=== PATIENT | male | born 1950 | race Caucasian/White ===

== ENCOUNTER 2017-04-29 21:52 | Observation (INO) | payer OTHER ==
[~2017-04-29] VITALS: Ht 172.7 cm; Wt 100.9 kg
[~2017-04-29 21:52] MED LIST: /WARF25TA; /WARF5TA; ACET65TA; ATEN50TA2; NABU500T; PERC5TAB8; PRIN20TA3; SIMV40TA2
[2017-04-29] MEDS ORDERED: VALS320T3 PO (22:18)
[2017-04-29] MEDS ORDERED: AZIT-12 PO (22:18)
[2017-04-29] MEDS ORDERED: CARV12.5 PO (22:18)
[2017-04-29] MEDS ORDERED: FLOM5CAP PO (22:18)
[2017-04-29] MEDS ORDERED: FINA5TAB2 PO (22:18)
[2017-04-29] MEDS ORDERED: NS 500 ML IV ONE (23:00)
[2017-04-29 23:54] LABS: ABG BASE EXCESS 2.2 (-2.0-2.0); ABG HCO3 25.6 MEQ/L (22.0-26.0); ABG PARTIAL PRESSURE CO2 35.2 mmHg (35.0-45.0); ABG PARTIAL PRESSURE O2 70.2 mmHg (75.0-100.0); ABG STANDARD HCO3 26.4 MEQ/L (22.0-26.0); ABG TOTAL CO2 26.6 MEQ/L (23.0-31.0); ABG pH (ARTERIAL) 7.479 UNITS (7.350-7.450)
[2017-04-30 00:07] LABS: BASO % 0.3 % (0.0-1.0); EOS # 0.6 10^3/uL (0.0-0.50); EOS % 5.2 % (0.0-3.0); IMMATURE GRANULOCYTE % 0.6 % (0-0); LYMPH # 0.8 10^3/uL (1.5-4.5); LYMPH % 7.7 % (24.0-44.0); MEAN CORPUSCULAR HEMOGLOBIN 30.7 pg (27.0-33.0); MEAN CORPUSCULAR HGB CONC 33.9 g/dl (32.0-36.5); MEAN CORPUSCULAR VOLUME 90.7 fl (80.0-96.0); MONO # 0.9 10^3/uL (0.0-0.8); MONO % 7.8 % (0.0-5.0); NEUTROPHILS # 8.5 10^3/uL (1.8-7.7); NEUTROPHILS % 78.4 % (36.0-66.0); PLATELET COUNT, AUTOMATED 259 10^3/uL (150-450); RED CELL DISTRIBUTION WIDTH 13.6 % (11.5-14.5); WHITE BLOOD COUNT 10.8 10^3/uL (4.0-10.0)
[2017-04-30 00:31] LABS: ANION GAP 5 MEQ/L (8-16); BLOOD UREA NITROGEN 40 MG/DL (7-18); CALCIUM LEVEL 8.5 MG/DL (8.8-10.2); CARBON DIOXIDE LEVEL 28 MEQ/L (21-32); CHLORIDE LEVEL 99 MEQ/L (98-107); CREATININE FOR GFR 1.23 MG/DL (0.70-1.30); GLOMERULAR FILTRATION RATE > 60.0 (>49); GLUCOSE, FASTING 120 MG/DL (80-110); POTASSIUM SERUM 3.7 MEQ/L (3.5-5.1); SODIUM LEVEL 132 MEQ/L (136-145)
[2017-04-30] MEDS ORDERED: NS 500 ML IV ONE ×2 (01:00→10:30)
[2017-04-30] MEDS ORDERED: ALEV220T26 PO (02:25)
[2017-04-30] MEDS ORDERED: GARL400T5 PO (02:25)
[2017-04-30 04:37] VITALS: BP 116/63
[2017-04-30] MEDS: HEPARIN SOD (PORCINE) 5000 UNITS/ML VIAL SC SCH ×3 (05:16→21:00)
[2017-04-30 07:29] LABS: BASO % 0.4 % (0.0-1.0); EOS # 0.5 10^3/uL (0.0-0.50); EOS % 6.3 % (0.0-3.0); IMMATURE GRANULOCYTE % 0.5 % (0-0); LYMPH # 0.9 10^3/uL (1.5-4.5); LYMPH % 10.7 % (24.0-44.0); MEAN CORPUSCULAR HEMOGLOBIN 30.6 pg (27.0-33.0); MEAN CORPUSCULAR HGB CONC 33.5 g/dl (32.0-36.5); MEAN CORPUSCULAR VOLUME 91.3 fl (80.0-96.0); MONO # 0.8 10^3/uL (0.0-0.8); MONO % 9.2 % (0.0-5.0); NEUTROPHILS # 6.2 10^3/uL (1.8-7.7); NEUTROPHILS % 72.9 % (36.0-66.0); PLATELET COUNT, AUTOMATED 252 10^3/uL (150-450); RED CELL DISTRIBUTION WIDTH 13.6 % (11.5-14.5); WHITE BLOOD COUNT 8.4 10^3/uL (4.0-10.0)
--- NOTE | 2017-04-30 07:51 | REP ---
PA and lateral chest: Comparison is 11/16/2008. There is focal discoid atelectasis in the left costophrenic angle. Lung reyes otherwise clear. Cardiac size is normal. The cristopher, mediastinum, bony thorax are unremarkable. Signed by Pedro Benitez MD 04/30/2017 07:42 A
[2017-04-30 07:53] LABS: ALBUMIN 2.4 GM/DL (3.2-5.2); ALKALINE PHOSPHATASE 52 U/L (45-117); ALT/SGPT 21 U/L (12-78); ANION GAP 9 MEQ/L (8-16); AST/SGOT 9 U/L (15-37); BILIRUBIN,TOTAL 0.4 MG/DL (0.2-1.0); BLOOD UREA NITROGEN 28 MG/DL (7-18); CALCIUM LEVEL 7.9 MG/DL (8.8-10.2); CARBON DIOXIDE LEVEL 26 MEQ/L (21-32); CHLORIDE LEVEL 101 MEQ/L (98-107); CREATININE FOR GFR 0.95 MG/DL (0.70-1.30); GLOMERULAR FILTRATION RATE > 60.0 (>49); GLUCOSE, FASTING 101 MG/DL (80-110); MAGNESIUM LEVEL 2.2 MG/DL (1.8-2.4); POTASSIUM SERUM 3.5 MEQ/L (3.5-5.1); SODIUM LEVEL 136 MEQ/L (136-145); TOTAL PROTEIN 6.4 GM/DL (6.4-8.2)
[2017-04-30 08:00] VITALS: BP 125/68
[2017-04-30 08:41] LABS: BASO % 0.2 % (0.0-1.0); EOS # 0.7 10^3/uL (0.0-0.50); EOS % 7.6 % (0.0-3.0); IMMATURE GRANULOCYTE % 0.4 % (0-0); LYMPH # 0.9 10^3/uL (1.5-4.5); LYMPH % 10.5 % (24.0-44.0); MEAN CORPUSCULAR HEMOGLOBIN 30.6 pg (27.0-33.0); MEAN CORPUSCULAR HGB CONC 33.5 g/dl (32.0-36.5); MEAN CORPUSCULAR VOLUME 91.1 fl (80.0-96.0); MONO # 0.9 10^3/uL (0.0-0.8); MONO % 9.8 % (0.0-5.0); NEUTROPHILS # 6.4 10^3/uL (1.8-7.7); NEUTROPHILS % 71.5 % (36.0-66.0); PLATELET COUNT, AUTOMATED 240 10^3/uL (150-450); RED CELL DISTRIBUTION WIDTH 13.5 % (11.5-14.5)
[2017-04-30] MEDS ORDERED: CARVedilol 12.5 MG TAB PO SCH (09:00)
[2017-04-30] MEDS ORDERED: hydroCHLOROthiazide 25 MG TAB PO SCH (09:00)
[2017-04-30 09:42] LABS: ANION GAP 9 MEQ/L (8-16); BLOOD UREA NITROGEN 27 MG/DL (7-18); CARBON DIOXIDE LEVEL 26 MEQ/L (21-32); CHLORIDE LEVEL 101 MEQ/L (98-107); GLOMERULAR FILTRATION RATE > 60.0 (>49); GLUCOSE, FASTING 105 MG/DL (80-110); POTASSIUM SERUM 3.8 MEQ/L (3.5-5.1); SODIUM LEVEL 136 MEQ/L (136-145)
--- NOTE | 2017-04-30 09:54 | HPEPDOC ---
General Date of Admission Apr 29, 2017 at 21:53 Primary Care Physician: ARIADNA CISNEROS Attending Physician: JANNA BARAHONA MD Chief Complaint The patient is a 67-year-old male admitted with a reason for visit of High Level Of Cardiac Marker. Source: Patient Exam Limitations: No limitations Timing/Duration: 24 hours Severity: Moderate Associated Symptoms: Diaphoresis, Fever, Chills, Headaches History of Present Illness 67-year-old male, history of hypertension, presented to the emergency room for hypotensive. Patient complained that he exam blood pressure has dropped down to 90s over 50 or past few days. He had denies any change chest pain, shortness of breath, palpitation, dyspnea on exertion, fever, chills, cough, recent travel or sick contact. Home Medications Scheduled (Valsartan/Hydrochlorothia 320-25 mg) 1 Tab Tab, 1 TAB PO DAILY, (Reported) Azithromycin (Azithromycin) 250 Mg Tab, 250 MG PO DAILY, (Reported) Carvedilol (Carvedilol) 12.5 Mg Tab, 12.5 MG PO BID, (Reported) Finasteride (Finasteride) 5 Mg Tab, 5 MG PO QHS, (Reported) Garlic (Garlique) 400 Mg Tab, 400 MG PO DAILY, (Reported) Naproxen Sodium (Aleve) 220 Mg Tab, 220 MG PO BID, (Reported) Tamsulosin Hydrochloride (Flomax) 0.4 Mg Cap, 0.4 MG PO QHS, (Reported) Allergies Coded Allergies: No Known Drug Allergy (Verified Allergy, Unknown, 10/28/12) Oxycodone (Verified Adverse Reaction, Unknown, NAUSEA / VOMITING, 10/28/12) Past Medical History Medical History Hypertension, BPH Surgical History Knee replacement 2, right shoulder repair, hernia repair Family History Significant Family History: COPD, Diabetes, Heart disease Social History * Smoker: Denies Alcohol: Denies Drugs: denies Recent Travel/Sick Contacts: Denies: Recent travel, Recent sick contacts Psychosocial History: No pertinent psych hx Review of Symptoms Constitutional: Reports: Lethargy, Denies: Chills, Fever, Night Sweats Eyes: Denies: Pain, Vision change ENT: Denies: Head Aches, Ear Pain, Dysphagia Skin: Denies: Rash, Lesions, Breakdown Pulmonary: Denies: Dyspnea, Cough Cardiovascular: Reports: Lt Headedness, Denies: Chest Pain, Palpitations, Orthopnea, Paroxysmal Noc. Dyspnea Gastrointestinal: Denies: Nausea, Vomiting, Abdominal Pain, Diarrhea Genitourinary: Denies: Dysuria, Frequency, Incontinence, Retention Hematologic: Denies: Bruising, Bleeding Excessively Musculoskeletal: Denies: Neck Pain, Back Pain, Joint Pain, Muscle Pain, Spasms Neurological: Denies: Weakness, Numbness, Change in speech, Confusion Psych: Reports: Mood Normal, Denies: Depression, Memory Issues Physical Examination General Exam: Positive: Alert, Mild Distress Eye Exam: Positive: PERRLA, Conjunctiva & lids normal, EOMI, Negative: Sclera icteric ENT Exam: Positive: Atraumatic, Mucous membr. moist/pink, Pharynx Normal Neck Exam: Positive: Supple, Negative: JVD, thyromegaly Chest Exam: Positive: Clear to auscultation, Normal air movement Heart Exam: Positive: Rate Normal, Regular Rhythm, Normal S1, Normal S2, Negative: Murmurs, Rubs Telemetry: Positive: No significant arrhythmia Abdomen Exam: Positive: Normal bowel sounds, Soft, Negative: Tenderness, Hepatospenomegaly Extremity Exam: Positive: Normal pulses, Negative: Clubbing, Cyanosis, Edema Skin Exam: Positive: Nl turgor and temperature, Negative: Breakdown, Lesion Neuro Exam: Positive: Normal Speech, Cranial Nerves 3-12 NL, Reflexes 2+ Psych Exam: Positive: Mental status NL, Mood NL, Oriented x 3 Vital Signs Vital Signs Date Time Temp Pulse Resp B/P (MAP) Pulse Ox O2 Delivery O2 Flow Rate FiO2 04/30/17 08:00 99.2 86 18 125/68 (87) 97 Room Air Laboratory Data Labs 24H Laboratory Tests 2 04/29/17 23:36: Blood Gas Bicarbonate Standard 26.4H, Arterial Blood pH 7.479H, Arterial Blood Partial Pressure CO2 35.2, Arterial Blood Partial Pressure O2 70.2L, Arterial Blood Total CO2 26.6, Arterial Blood HCO3 25.6, Arterial Blood Base Excess 2.2H , Arterial Blood Oxygen Saturation 94.9L 04/29/17 23:59: Immature Granulocyte % (Auto) 0.6H, White Blood Count 10.8H, Red Blood Count 3.45L, Hemoglobin 10.6L, Hematocrit 31.3L, Mean Corpuscular Volume 90.7, Mean Corpuscular Hemoglobin 30.7, Mean Corpuscular Hemoglobin Concent 33.9, Red Cell Distribution Width 13.6, Platelet Count 259, Neutrophils (%) (Auto) 78.4H, Lymphocytes (%) (Auto) 7.7L, Monocytes (%) (Auto) 7.8H, Eosinophils (%) (Auto) 5.2H, Basophils (%) (Auto) 0.3, Neutrophils # (Auto) 8.5H, Lymphocytes # (Auto) 0.8L, Monocytes # (Auto) 0.9H, Eosinophils # (Auto) 0.6H, Basophils # (Auto) 0.0 , Immature Granulocyte # (Auto) 0.1H, Nucleated Red Blood Cells % (auto) 0.0, Anion Gap 5L, Glomerular Filtration Rate > 60.0, Lactic Acid Level 1.1, Blood Urea Nitrogen 40H, Creatinine 1.23, Sodium Level 132L, Potassium Level 3.7, Chloride Level 99, Carbon Dioxide Level 28, Calcium Level 8.5L, Total Creatine Kinase 60, Creatine Kinase MB 1.0, Creatine Kinase MB Relative Index 1.66, Troponin I 0.15H 04/30/17 07:09: Immature Granulocyte % (Auto) 0.5H, White Blood Count 8.4, Red Blood Count 3.43L , Hemoglobin 10.5L, Hematocrit 31.3L, Mean Corpuscular Volume 91.3, Mean Corpuscular Hemoglobin 30.6, Mean Corpuscular Hemoglobin Concent 33.5, Red Cell Distribution Width 13.6, Platelet Count 252, Neutrophils (%) (Auto) 72.9H, Lymphocytes (%) (Auto) 10.7L, Monocytes (%) (Auto) 9.2H, Eosinophils (%) (Auto) 6.3H, Basophils (%) (Auto) 0.4, Neutrophils # (Auto) 6.2, Lymphocytes # (Auto) 0.9L, Monocytes # (Auto) 0.8, Eosinophils # (Auto) 0.5, Basophils # (Auto) 0.0, Immature Granulocyte # (Auto) 0.0, Nucleated Red Blood Cells % (auto) 0.0, Anion Gap 9, Glomerular Filtration Rate > 60.0, Blood Urea Nitrogen 28H, Creatinine 0.95, Sodium Level 136, Potassium Level 3.5, Chloride Level 101, Carbon Dioxide Level 26, Calcium Level 7.9L, Aspartate Amino Transf (AST/SGOT) 9L, Alanine Aminotransferase (ALT/SGPT) 21, Alkaline Phosphatase 52, Total Bilirubin 0.4, Total Protein 6.4, Albumin 2.4L, Magnesium Level 2.2, Albumin/ Globulin Ratio 0.60L 04/30/17 08:31: Immature Granulocyte % (Auto) 0.4H, White Blood Count 9.0, Red Blood Count 3.50L , Hemoglobin 10.7L, Hematocrit 31.9L, Mean Corpuscular Volume 91.1, Mean Corpuscular Hemoglobin 30.6, Mean Corpuscular Hemoglobin Concent 33.5, Red Cell Distribution Width 13.5, Platelet Count 240, Neutrophils (%) (Auto) 71.5H, Lymphocytes (%) (Auto) 10.5L, Monocytes (%) (Auto) 9.8H, Eosinophils (%) (Auto) 7.6H, Basophils (%) (Auto) 0.2, Neutrophils # (Auto) 6.4, Lymphocytes # (Auto) 0.9L, Monocytes # (Auto) 0.9H, Eosinophils # (Auto) 0.7H, Basophils # (Auto) 0.0 , Immature Granulocyte # (Auto) 0.0, Nucleated Red Blood Cells % (auto) 0.0, Anion Gap 9, Glomerular Filtration Rate > 60.0, Blood Urea Nitrogen 27H, Creatinine 0.90, Sodium Level 136, Potassium Level 3.8, Chloride Level 101, Carbon Dioxide Level 26, Calcium Level 8.0L, Total Creatine Kinase 73, Creatine Kinase MB 1.0, Creatine Kinase MB Relative Index 1.36, Troponin I 0.16H CBC/BMP Laboratory Tests 04/29/17 23:59 Red Blood Count 3.45 L, Mean Corpuscular Volume 90.7, Mean Corpuscular Hemoglobin 30.7, Mean Corpuscular Hemoglobin Concent 33.9, Red Cell Distribution Width 13.6, Neutrophils (%) (Auto) 78.4 H, Lymphocytes (%) (Auto) 7.7 L, Monocytes (%) (Auto) 7.8 H, Eosinophils (%) (Auto) 5.2 H, Basophils (%) ( Auto) 0.3, Neutrophils # (Auto) 8.5 H, Lymphocytes # (Auto) 0.8 L, Monocytes # ( Auto) 0.9 H, Eosinophils # (Auto) 0.6 H, Basophils # (Auto) 0.0, Calcium Level 8.5 L, Total Creatine Kinase 60 04/30/17 07:09 Red Blood Count 3.43 L, Mean Corpuscular Volume 91.3, Mean Corpuscular Hemoglobin 30.6, Mean Corpuscular Hemoglobin Concent 33.5, Red Cell Distribution Width 13.6, Neutrophils (%) (Auto) 72.9 H, Lymphocytes (%) (Auto) 10.7 L, Monocytes (%) (Auto) 9.2 H, Eosinophils (%) (Auto) 6.3 H, Basophils (%) (Auto) 0.4, Neutrophils # (Auto) 6.2, Lymphocytes # (Auto) 0.9 L, Monocytes # ( Auto) 0.8, Eosinophils # (Auto) 0.5, Basophils # (Auto) 0.0, Calcium Level 7.9 L , Aspartate Amino Transf (AST/SGOT) 9 L, Alanine Aminotransferase (ALT/SGPT) 21 , Alkaline Phosphatase 52, Total Bilirubin 0.4, Total Protein 6.4, Albumin 2.4 L 04/30/17 08:31 Red Blood Count 3.50 L, Mean Corpuscular Volume 91.1, Mean Corpuscular Hemoglobin 30.6, Mean Corpuscular Hemoglobin Concent 33.5, Red Cell Distribution Width 13.5, Neutrophils (%) (Auto) 71.5 H, Lymphocytes (%) (Auto) 10.5 L, Monocytes (%) (Auto) 9.8 H, Eosinophils (%) (Auto) 7.6 H, Basophils (%) (Auto) 0.2, Neutrophils # (Auto) 6.4, Lymphocytes # (Auto) 0.9 L, Monocytes # ( Auto) 0.9 H, Eosinophils # (Auto) 0.7 H, Basophils # (Auto) 0.0, Calcium Level 8.0 L, Total Creatine Kinase 73 Microbiology Microbiology 04/29/17 Blood Culture, Received Pending 04/29/17 Influenza Virus Type A Antigen - Final, Complete 04/29/17 Influenza Virus Type B Antigen - Final, Complete Assessment/Plan 67-year-old male, history of hypertension, BPH, presented to the emergency room for hypotension. Troponin was found to be elevated, but patient denies any chest pain Plan / VTE VTE Prophylaxis Ordered?: Yes Plan Plan Hypertension. Patient was taking Coreg, valsartan and hydrochlorothiazide and will hold valsartan and continue Coreg and hydrochlorothiazide. For the time being. Elevated troponin. There is no chest pain or palpitation or shortness of breath. Troponin was mildly elevated at 0.15. Follow-up with the troponin get echocardiogram. BPH Continue with Flomax. DVT prophylaxis heparin subcutaneous. Cardiac diet Disposition Patient will be discharged home. Most likely within a day Diet: Continue Current Activity: Continue Current Diagnostics: Repeat Labs in AM, HITESH SANZ MD Apr 30, 2017 09:54
[2017-04-30 12:00] VITALS: BP 109/69
[2017-04-30 16:00] VITALS: BP 107/72
[2017-04-30 17:34] VITALS: BP 127/72
[2017-04-30 19:50] VITALS: BP 122/75
[2017-04-30] MEDS: TAMSULOSIN 0.4 MG CAP PO SCH (21:00)
[2017-04-30] MEDS: FINASTERIDE 5 MG TAB PO SCH (21:00)
[2017-05-01] VITALS: BP 126/72
[2017-05-01 04:00] VITALS: BP 122/73
[2017-05-01] MEDS: HEPARIN SOD (PORCINE) 5000 UNITS/ML VIAL SC SCH ×3 (05:18→21:57)
--- NOTE | 2017-05-01 06:01 | ECGEPIP ---
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
[2017-05-01 06:09] LABS: BASO % 0.5 % (0.0-1.0); EOS # 0.5 10^3/uL (0.0-0.50); EOS % 8.2 % (0.0-3.0); IMMATURE GRANULOCYTE % 0.3 % (0-0); LYMPH # 1.2 10^3/uL (1.5-4.5); LYMPH % 18.8 % (24.0-44.0); MEAN CORPUSCULAR HEMOGLOBIN 30.3 pg (27.0-33.0); MEAN CORPUSCULAR HGB CONC 32.7 g/dl (32.0-36.5); MEAN CORPUSCULAR VOLUME 92.5 fl (80.0-96.0); MONO % 15.3 % (0.0-5.0); NEUTROPHILS # 3.5 10^3/uL (1.8-7.7); NEUTROPHILS % 56.9 % (36.0-66.0); PLATELET COUNT, AUTOMATED 255 10^3/uL (150-450); RED CELL DISTRIBUTION WIDTH 13.4 % (11.5-14.5); WHITE BLOOD COUNT 6.2 10^3/uL (4.0-10.0)
[2017-05-01 06:38] LABS: ANION GAP 4 MEQ/L (8-16); BLOOD UREA NITROGEN 19 MG/DL (7-18); CALCIUM LEVEL 8.4 MG/DL (8.8-10.2); CARBON DIOXIDE LEVEL 30 MEQ/L (21-32); CHLORIDE LEVEL 105 MEQ/L (98-107); GLOMERULAR FILTRATION RATE > 60.0 (>49); GLUCOSE, FASTING 104 MG/DL (80-110); POTASSIUM SERUM 3.8 MEQ/L (3.5-5.1); SODIUM LEVEL 139 MEQ/L (136-145)
[2017-05-01 08:00] VITALS: BP 127/80
[2017-05-01] MEDS ORDERED: VALSARTAN 80 MG TAB (DIOVAN) PO SCH (09:00)
[2017-05-01] MEDS ORDERED: INFLUENZA VIRUS VACCINE HIGH DOSE 0.5 ML SYRINGE (90662) IM ONE (09:00)
[2017-05-01 09:05] LABS: RETIC HEMOGLOBIN EQUIVALENT 33.1 pg (24-36); RETICULOCYTE % 1.3 % (0.5-1.5)
[2017-05-01 09:23] LABS: PERCENT SATURATION 10.1 % (19.7-50.0); TOTAL IRON BINDING CAPACITY 247 UG/DL (250-450)
[2017-05-01 09:24] LABS: FERRITIN 708 NG/ML (26-388)
[2017-05-01 10:21] LABS: ERYTHROCYTE SEDIMENTATION RATE 58 mm/hr (0-20)
--- NOTE | 2017-05-01 11:50 | IPNPDOC ---
Subjective Date Seen The patient was seen on 05/01/17. Subjective Chief Complaint/HPI The patient is a 67-year-old male admitted with a reason for visit of High Level Of Cardiac Marker. Events since last encounter feeling better this am . Objective Physical Examination General Exam: Positive: Alert, Cooperative, Mild Distress Eye Exam: Positive: PERRLA, Conjunctiva & lids normal, EOMI, Negative: Sclera icteric ENT Exam: Positive: Atraumatic, Mucous membr. moist/pink, Pharynx Normal Neck Exam: Positive: Supple, Negative: JVD, thyromegaly Chest Exam: Positive: Clear to auscultation, Normal air movement Heart Exam: Positive: Rate Normal, Regular Rhythm, Normal S1, Normal S2, Negative: Murmurs, Rubs Telemetry: Positive: No significant arrhythmia Abdomen Exam: Positive: Normal bowel sounds, Soft, Negative: Tenderness, Hepatospenomegaly Extremity Exam: Positive: Normal pulses, Negative: Clubbing, Cyanosis, Edema Skin Exam: Positive: Nl turgor and temperature, Negative: Breakdown, Lesion Neuro Exam: Positive: Normal Speech, Cranial Nerves 3-12 NL, Reflexes 2+ Psych Exam: Positive: Mental status NL, Mood NL, Oriented x 3 Assessment /Plan Problems (1) Hypotension Status: Resolved Problem Text: possibly due to poor oral intake and continued to take his antihypertensives. improved with IVF and holding antihypertensives telemetry no arrhythmia. (2) Viral upper respiratory infection Status: Acute (3) High level of cardiac marker Status: Acute Problem Text: no chest pain or dynamic ekg changes. ;BNP mildly elevated. Patient is not having any acute cardiac event at this point however will need work up for CAD as outpatient. will get echo . (4) Anemia Status: Chronic Problem Text: No history of bleeding , no iron deficiency , ESR elevated , will check SPEP, folate and b 12 levels. (5) GEOVANI on CPAP Status: Chronic (6) BPH (benign prostatic hyperplasia) Status: Chronic Problem Text: has elevated PSA planned for prostate biopsy. continue flomax and finasteride. Plan/VTE VTE Prophylaxis Ordered?: Yes Plan Diet: Continue Current Activity: Continue Current Diagnostics: Repeat Labs in AM, TTE VS, I&O, 24H, Fishbone Vital Signs/I&O Vital Signs Date Time Temp Pulse Resp B/P (MAP) Pulse Ox O2 Delivery O2 Flow Rate FiO2 05/01/17 11:34 Room Air 05/01/17 08:00 98.2 81 18 127/80 (96) 98 I&O- Last 24 Hours up to 6 AM 05/02/17 06:00 Intake Total 0 ml Output Total 0 ml Balance 0 ml Laboratory Data 24H LABS Laboratory Tests 2 05/01/17 05:42: Immature Granulocyte % (Auto) 0.3H, White Blood Count 6.2, Red Blood Count 3.47L , Hemoglobin 10.5L, Hematocrit 32.1L, Mean Corpuscular Volume 92.5, Mean Corpuscular Hemoglobin 30.3, Mean Corpuscular Hemoglobin Concent 32.7, Red Cell Distribution Width 13.4, Platelet Count 255, Neutrophils (%) (Auto) 56.9, Lymphocytes (%) (Auto) 18.8L, Monocytes (%) (Auto) 15.3H, Eosinophils (%) (Auto ) 8.2H, Basophils (%) (Auto) 0.5, Neutrophils # (Auto) 3.5, Lymphocytes # (Auto ) 1.2L, Monocytes # (Auto) 1.0H, Eosinophils # (Auto) 0.5, Basophils # (Auto) 0.0, Immature Granulocyte # (Auto) 0.0, Reticulocyte # (auto) 43.100, Nucleated Red Blood Cells % (auto) 0.0, Erythrocyte Sedimentation Rate 58H, Percent Reticulocyte Count 1.3, Reticulocyte Hemoglobin Equivalent 33.1, Anion Gap 4L, Glomerular Filtration Rate > 60.0, Blood Urea Nitrogen 19H, Creatinine 0.80, Sodium Level 139, Potassium Level 3.8, Chloride Level 105, Carbon Dioxide Level 30, Calcium Level 8.4L, Iron Level 25L, Total Iron Binding Capacity 247L, Transferrin % Saturation 10.1L, Ferritin 708H, Lactate Dehydrogenase 149, Total Creatine Kinase 54, Creatine Kinase MB 1.1, Creatine Kinase MB Relative Index 2.03, Troponin I 0.27#H 05/01/17 07:32: Troponin I 0.29H, [id number]-Type Natriuretic Peptide 1290H CBC/BMP Laboratory Tests 05/01/17 05:42 Red Blood Count 3.47 L, Mean Corpuscular Volume 92.5, Mean Corpuscular Hemoglobin 30.3, Mean Corpuscular Hemoglobin Concent 32.7, Red Cell Distribution Width 13.4, Neutrophils (%) (Auto) 56.9, Lymphocytes (%) (Auto) 18.8 L, Monocytes (%) (Auto) 15.3 H, Eosinophils (%) (Auto) 8.2 H, Basophils (% ) (Auto) 0.5, Neutrophils # (Auto) 3.5, Lymphocytes # (Auto) 1.2 L, Monocytes # (Auto) 1.0 H, Eosinophils # (Auto) 0.5, Basophils # (Auto) 0.0, Calcium Level 8.4 L Microbiology Microbiology 04/29/17 Blood Culture - Preliminary, Resulted No growth after 24 hours . All specim... 04/29/17 Influenza Virus Type A Antigen - Final, Complete 04/29/17 Influenza Virus Type B Antigen - Final, Complete JANNA BARAHONA MD May 01, 2017 11:50
[2017-05-01 11:53] VITALS: BP 137/84
[2017-05-01 12:13] LABS: FOLATE 11.8 NG/ML; VITAMIN B12 LEVEL 319 PG/ML
[2017-05-01 14:00] VITALS: BP 126/70
--- NOTE | 2017-05-01 17:34 | ECGEPIP ---
Stationary ECG Study [facility] Test Date: 2017-05-01 Pat Name: NAKUL ABDUL Department: Room: [place] [address] Gender: M Contracting Officer: JOCELYN : 1950 Requested By: JANNA BARAHONA Order Number: [id number] Reading MD: Aileen Holden Measurements Intervals [place] Rate: 81 P: 33 [place]: 184 QRS: -27 QRSD: 99 T: 3 QT: 375 QTc: 435 Interpretive Statements SINUS RHYTHM BORDERLINE LEFT AXIS DEVIATION EARLY R WAVE PROGRESSION SIMILAR TO 04/29/17 Electronically Signed On 05-01-2017 17:34:07 EDT by Aileen Holden
[2017-05-01] MEDS: FINASTERIDE 5 MG TAB PO SCH (21:57)
[2017-05-01] MEDS: TAMSULOSIN 0.4 MG CAP PO SCH (21:57)
[2017-05-01 22:15] VITALS: BP 164/92
[2017-05-02 01:00] VITALS: BP 156/85
[2017-05-02 04:00] VITALS: BP 138/88
[2017-05-02] MEDS: HEPARIN SOD (PORCINE) 5000 UNITS/ML VIAL SC SCH (06:18)
[2017-05-02 06:39] LABS: BASO % 0.9 % (0.0-1.0); EOS # 0.4 10^3/uL (0.0-0.50); EOS % 9.2 % (0.0-3.0); IMMATURE GRANULOCYTE % 0.4 % (0-0); LYMPH # 1.3 10^3/uL (1.5-4.5); LYMPH % 28.5 % (24.0-44.0); MEAN CORPUSCULAR HEMOGLOBIN 30.6 pg (27.0-33.0); MEAN CORPUSCULAR HGB CONC 33.1 g/dl (32.0-36.5); MEAN CORPUSCULAR VOLUME 92.4 fl (80.0-96.0); MONO # 0.9 10^3/uL (0.0-0.8); MONO % 18.8 % (0.0-5.0); NEUTROPHILS % 42.2 % (36.0-66.0); PLATELET COUNT, AUTOMATED 282 10^3/uL (150-450); RED CELL DISTRIBUTION WIDTH 13.3 % (11.5-14.5); WHITE BLOOD COUNT 4.7 10^3/uL (4.0-10.0)
[2017-05-02 06:57] LABS: ANION GAP 7 MEQ/L (8-16); BLOOD UREA NITROGEN 18 MG/DL (7-18); CALCIUM LEVEL 8.4 MG/DL (8.8-10.2); CARBON DIOXIDE LEVEL 28 MEQ/L (21-32); CHLORIDE LEVEL 106 MEQ/L (98-107); CREATININE FOR GFR 0.74 MG/DL (0.70-1.30); GLOMERULAR FILTRATION RATE > 60.0 (>49); GLUCOSE, FASTING 99 MG/DL (80-110); POTASSIUM SERUM 4.1 MEQ/L (3.5-5.1); SODIUM LEVEL 141 MEQ/L (136-145)
[2017-05-02 08:00] VITALS: BP 130/83
[2017-05-02] MEDS ORDERED: VALS160T PO (10:23)
[2017-05-04 10:12] LABS: TOTAL PROTEIN 5.8 GM/DL (6.4-8.2)
[2017-05-04 10:50] LABS: ALBUMIN 2.69 GM/DL (3.29-5.55); ALBUMIN % 46.4 % (55.8-66.1); GAMMA GLOBULIN % 14.8 % (11.1-18.8)
== END 2017-05-02 12:00 | disposition home or self-care (01) ==
LOC: M ED 21:52 → M ED INP 21:53 → M PCU 04-30 17:26 → M MSPAV 05-01 11:04 → M PED 05-01 22:19
PROVIDERS: ADMIT Internal Medicine; ATTEND Internal Medicine Nephrology
DX: I95.9 Hypotension, unspecified (principal); R79.89 Other specified abnormal findings of blood chemistry; N40.0 Benign prostatic hyperplasia without lower urinary tract symptoms; Z79.899 Other long term (current) drug therapy; Z79.02 Long term (current) use of antithrombotics/antiplatelets; R06.02 Shortness of breath
CPT/HCPCS: 36415; 36600; 71020; 80053; 82550; 82553; 82607; 82728; 82746; 82803; 83550; 83605; 83615; 83735; 83880; 84165; 84484; 85025; 85046; 85652; 87040; 87804; 90662; 93005; 96365; 96372; 99285; G0008; G0378